=== PATIENT | female | born 1945 | race Caucasian/White ===

== ENCOUNTER → 2017-03-31 | Outpatient (CLI) | payer MEDICARE, BC ==
[~2017-03-31] MED LIST: ALLEGRA PO; IBUPROFEN800 MG PO; KEFLEX500 MG PO; KROGER PHARMACY; LISINOPRIL PO; VICODIN 5/500 T1 TAB PO; thyroid med
--- NOTE | ~2017-03-31 | CR282 ---
[facility] A Service of [facility] RADIOLOGY TEXT RESULTS PATIENT: TINA SPARKS LOCATION: [facility] : 49 UNIT #: [id number] AGE: [address]: Sudhakar Penn MD SEX: F ORDER DR: [id number] [place], [place] [address] [id number] O MR#: [id number] Acc #: [id number] NAME: TINA SPARKS : 1945 SEX: F STUDY DATE/TIME: 03/31/2017 12:06 UNIT: [facility] ROOM: STUDY DESCRIPTION: CR Wrist Min 3 View Rt Attending Physician: Sudhakar Penn M.D. Referring Physician: Sudhakar Penn M.D. Ordering Physician: Sudhakar Penn M.D. Primary Care Physician: Sudhakar Penn M.D. MEDICAL IMAGING REPORT This report is preliminary unless electronic signature is present EXAM 3 views of the right wrist. DATE 03/31/2017 HISTORY 71-year-old female with right wrist pain and swelling after injuring it yesterday while doing yard work. 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 There is partial radial subluxation of the first metacarpal with respect to the trapezium. However, no acute fracture or joint dislocation is seen. There is mild radiocarpal joint space narrowing. No unexpected retained radiopaque foreign body is seen within the soft tissues. No definite joint effusion. Mild degenerative type cystic changes are thought to be present within the lunate bone, as well. IMPRESSION 1. No acute abnormalities seen within the right wrist. 2. 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 Dictated by... Rachel Moore M.D. THIS IS AN ELECTRONICALLY VERIFIED REPORT [facility] A Service of [facility] RADIOLOGY TEXT RESULTS PATIENT: TINA SPARKS LOCATION: [facility] : 49 UNIT #: [id number] AGE: [address]: Sudhakar Penn MD SEX: F ORDER DR: Rachel Moore M.D. at 04/01/2017 9:41 AM [facility]/saúl TD: 03/31/2017 15:58 JOB #: [id number] MEDICAL IMAGING REPORT Page 1 of 1 COPY
== END | disposition home or self-care (01) ==
LOC: CRAD 11:37
DX: M25.531 Pain in right wrist (principal); M25.431 Effusion, right wrist
CPT/HCPCS: 73110

== ENCOUNTER → 2017-05-13 | Outpatient (CLI) | payer MEDICARE, BC ==
--- NOTE | ~2017-05-13 | MR188 ---
[facility] A Service of [facility] RADIOLOGY TEXT RESULTS PATIENT: TINA SPARKS [facility] : 47 UNIT #: [id number] AGE: [address]: Louis Vora MD SEX: F ORDER DR: [id number] [facility] [address] [place], [place] [address] [id number] O MR#: [id number] Acc #: [id number] NAME: TINA SPARKS : 1945 SEX: F STUDY DATE/TIME: 05/13/2017 14:17 UNIT: [facility] ROOM: STUDY DESCRIPTION: MR Wrist Wo Contrast Rt Attending Physician: Louis Vora M.D. Referring Physician: Louis Vora M.D. Ordering Physician: Louis Vora M.D. Primary Care Physician: Sudhakar Penn M.D. [facility] CENTER REPORT This report is preliminary unless electronic signature is present. EXAM Right wrist MRI without contrast, 05/13/2017. HISTORY 71-year-old female with right wrist pain after feeling a pop while gardening 03/31/2017. Right wrist pain and weakness. No prior right wrist surgery. Order states possible TFCC tear. COMPARISON Right wrist x-rays 03/31/2017 and 05/04/2017. TECHNIQUE Routine unenhanced multiplanar, multisequence high-field MR imaging of the right wrist was performed. FINDINGS There is a suspected degenerative perforation of the central disc of the triangular fibrocartilage complex. The remainder of the TFCC is moderately degenerated. There is slightly increased fluid in the distal radioulnar joint and there is moderate arthrosis involving the distal radioulnar joint. There is marrow edema throughout the lunate which may be secondary to ulnar impaction syndrome or developing Kienbock's disease. Scapholunate and triquetral ligaments appear intact. No significant wrist effusion. There are advanced degenerative changes involving the first carpal metacarpal joint. Moderate degenerative changes of the scaphoid - trapezium - trapezoid articulation. Flexor and extensor tendons appear within normal limits. Median nerve is unremarkable in the carpal tunnel. Ulnar nerve is unremarkable in Guyon's canal. Visualized musculature is within expected limits. [facility]ION [facility] A Service of [facility] RADIOLOGY TEXT RESULTS PATIENT: TINA SPARKS LOCATION: [facility] : 49 UNIT #: [id number] AGE: [address]: Louis Vora MD SEX: F ORDER DR: 1. Moderate degeneration throughout the triangular fibrocartilage complex with a suspected degenerative perforation of the central disc. 2. Moderate arthrosis of the distal radioulnar joint with a small DRUJ effusion. 3. Edema noted throughout the lunate, which could suggest ulnar impaction syndrome versus developing Kienbock's disease. 4. Advanced arthrosis of the first carpometacarpal joint with moderate arthrosis of the STT articulation. 5. No acute tendon abnormality. Dictated by... Casimiro Mac M.D. THIS IS AN ELECTRONICALLY VERIFIED REPORT Casimiro Mac M.D. at 05/15/2017 8:33 AM [facility]/alie TD: 05/14/2017 23:45 JOB #: [id number] MRI CENTER REPORT Page 1 of 1 COPY
== END | disposition home or self-care (01) ==
LOC: CMRI 13:34
DX: M25.531 Pain in right wrist (principal); M19.031 Primary osteoarthritis, right wrist
CPT/HCPCS: 73221